=== PATIENT | male | born 1995 | race Caucasian/White ===

== ENCOUNTER 2017-02-23 20:00 | Emergency (ER) | payer SELFPAY ==
[~2017-02-23] VITALS: Ht 193 cm; Wt 67.0 kg
[~2017-02-23 20:00] MED LIST: BACT800T5 PO
[2017-02-23 20:37] VITALS: BP 114/57; PULSE 93; RESP 18; TEMP 98.2; O2SAT 98
--- NOTE | 2017-02-23 20:41 | PD ---
HPI Chief Complaint: Skin Problem Time Seen by Provider: 20:36 Travel History International Travel<30 days: No Contact w/Intl Traveler<30days: No Traveled to known affect area: No History of Present Illness HPI This 21-year-old male is complaining of pain in his left great toe. He has noted that the toenail growing in. Has been no drainage or fever. 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 HEAD: Atraumatic. Normocephalic. EYES: Pupils equal and round. No scleral icterus. No injection or drainage. ENT: No nasal bleeding or discharge. Mucous membranes pink and moist. NECK: Trachea midline. No JVD. MUSCULOSKELETAL: No obvious deformities. No clubbing. No cyanosis. No edema. He was in grown toenail on the medial side of the left great toe. There is no obvious purulent drainage s NEUROLOGICAL: Awake and alert. No obvious cranial nerve deficits. Motor grossly within normal limits. Normal speech. PSYCHIATRIC: Appropriate mood and affect; insight and judgment normal. Data Data Last Documented VS Vital Signs Date Time Temp Pulse Resp B/P Pulse Ox O2 Delivery O2 Flow Rate FiO2 02/23/17 20:37 98.2 93 18 114/57 98 Orders Lidocaine 1% Inj (Xylocaine 1% Inj) (02/23/17 20:45) Lidocaine 1% Inj (50 Ml) (Xylocaine 1% I (02/23/17 20:45) MDM Medical Decision Making Medical Screen Exam Complete: Yes Emergency Medical Condition: Yes Medical Record Reviewed: Yes Differential Diagnosis Ventral includes ingrown toenail Narrative Course The edge of the toenail was removed with good results Procedures Procedure Narrative A digital block with 1% lidocaine was done. After adequate anesthesia was obtained the edge of the nail was removed with scissors. There is good hemostasis was obtained Diagnosis Primary Impression: Ingrown left greater toenail Scripts Hydrocodone-Acetaminophen (Lortab)7.5-325 Mg Tab1 Tab PO Q4H PRN (PAIN) #20 TAB Ref 0 Prov:Italo Kim MD 02/23/17 Cephalexin (Keflex)500 Mg [id number] Mg PO Q6H #28 CAP Ref 0 Prov:Italo Kim MD 02/23/17 Disposition: 01 DISCHARGE HOME Condition: Stable Italo Kim MD Feb 23, 2017 20:41
[2017-02-23] MEDS ORDERED: LIDOCAINE HCL 1% 50 ML VIAL INFIL ONE (20:45)
[2017-02-23] MEDS ORDERED: LIDOCAINE HCL 1% 30 ML VIAL INFIL ONE (20:45)
[2017-02-23] MEDS ORDERED: HYDR-3534 PO (21:14)
[2017-02-23] MEDS ORDERED: CEPH-460 PO (21:14)
== END 2017-02-23 21:44 | disposition home or self-care (01) ==
LOC: PHED 20:00
DX: L60.0 Ingrowing nail (principal)
CPT/HCPCS: 64450

== ENCOUNTER 2017-03-12 00:29 | Emergency (ER) | payer SELFPAY ==
[~2017-03-12] VITALS: Ht 193 cm; Wt 59.9 kg
[~2017-03-12 00:29] MED LIST changes: -BACT800T5 PO; +CEPH-460 PO; +HYDR-3534 PO
[2017-03-12 00:34] VITALS: BP 89/60; PULSE 67; RESP 16; TEMP 98.7; O2SAT 99
[2017-03-12] MEDS ORDERED: LIDOCAINE HCL 1% 50 ML VIAL INFIL ONE (01:00)
[2017-03-12 01:35] VITALS: BP 102/61; PULSE 60; RESP 16; O2SAT 100
[2017-03-12] MEDS ORDERED: CEPH-460 PO (01:45)
[2017-03-12] MEDS ORDERED: BACT800T5 PO (01:45)
--- NOTE | 2017-03-12 01:45 | PD ---
HPI Chief Complaint: Skin Problem Time Seen by Provider: 00:44 Travel History International Travel<30 days: No Contact w/Intl Traveler<30days: No Traveled to known affect area: No History of Present Illness HPI Patient is a 21-year-old male comes in complaining of pain to his right first toe. He has had multiple issues with ingrown nails and infections to his toes. He was here in February 23 for approximately the left foot. He was discharged on Keflex. He says that has resolved, but a few days ago his right toe started to hurt him. He was trying to treat at home without success. He did take a few left over Keflex. He denies fever or chills. He denies any other symptoms. 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) Reported Meds & Prescriptions Reported Meds & Active Scripts Active Keflex (Cephalexin) 500 Mg Cap 500 Mg PO Q6H 7 Days Bactrim DS (Sulfamethoxazole-Trimethoprim) 800-160 Mg Tab 1 Tab PO BID Keflex (Cephalexin) 500 Mg Cap 500 Mg PO Q6H Review of Systems General / Constitutional: No: Fever, Chills HENT: No: Headaches Cardiovascular: No: Chest Pain or Discomfort Respiratory: No: Shortness of Breath Gastrointestinal: No: Nausea, Vomiting Musculoskeletal: Positive: Pain Skin: Positive Change in Pigmentation Neurologic: No: Weakness, Dizziness Physical Exam Narrative GENERAL: Awake and alert, no acute distress. SKIN: Focused skin assessment warm/dry. Erythema to the right first toe, some pus expressed next to the nail. No area of fluctuance felt. HEAD: Atraumatic. Normocephalic. EYES: Pupils equal and round. No scleral icterus. ENT: No nasal bleeding or discharge. Mucous membranes pink and moist. CARDIOVASCULAR: Regular rate and rhythm. No murmur appreciated. RESPIRATORY: No accessory muscle use. Clear to auscultation. Breath sounds equal bilaterally. MUSCULOSKELETAL: No obvious deformities. No clubbing. No cyanosis. No edema. NEUROLOGICAL: Awake and alert. No obvious cranial nerve deficits. Motor grossly within normal limits. Normal speech. Data Data Last Documented VS Vital Signs Date Time Temp Pulse Resp B/P Pulse Ox O2 Delivery O2 Flow Rate FiO2 03/12/17 01:35 60 16 102/61 100 Room Air 03/12/17 00:34 98.7 Orders Lidocaine 1% Inj (50 Ml) (Xylocaine 1% I (03/12/17 01:00) [facility] Medical Decision Making Medical Screen Exam Complete: Yes Emergency Medical Condition: Yes Medical Record Reviewed: Yes Differential Diagnosis Cellulitis versus paronychia I versus ingrown toenail Narrative Course Patient is a 21-year-old male comes in complaining of pain to his right first toe. Exam shows erythema around the nail with minimal pus production. Digital block performed, nail from the skin. Attempts to drain pus revealed no pus present. Patient will be discharged on Keflex and Bactrim. Advised to follow-up with podiatry. Advised to return to the ED as needed for any worsening symptoms. Procedures Procedure Narrative Digital block performed of right first toe using 1% lidocaine, 4mL. 15 blade scalpel used to separate the nail from the skin. There is no evidence of ingrown nail. No pus present. Wound covered with sterile dressing. Diagnosis Primary Impression: Cellulitis Qualified Code: L03.031 - Cellulitis of toe of right foot Patient Instructions: Cellulitis (ED), General Instructions Additional Instructions: Follow-up with podiatry. Take all of your antibiotics. Keep your toe clean and dry. Return to the ED as needed for any worsening symptoms. Scripts Cephalexin (Keflex)500 Mg [id number] Mg PO Q6H 7 Days Ref 0 Prov:Margarita De Leon MD 03/12/17 Sulfamethoxazole-Trimethoprim (Bactrim DS)800-160 Mg Tab1 Tab PO BID #14 TAB Ref 0 Prov:Margarita De Leon MD 03/12/17 Disposition: DISCHARGE HOME Condition: Stable Margarita De Leon MD March 12, 2017 01:45
== END 2017-03-12 01:51 | disposition home or self-care (01) ==
LOC: PHED 00:29
DX: L03.031 Cellulitis of right toe (principal)
CPT/HCPCS: 64450